=== PATIENT | female | born 1990 | race Caucasian/White ===

== ENCOUNTER 2017-03-17 12:59 | Emergency (ER) | payer OTHER ==
[~2017-03-17] VITALS: Ht 172.7 cm; Wt 73.6 kg
[2017-03-17 13:11] VITALS: TEMP 36.7; Ht 172.7 cm; Wt 73.6 kg
[2017-03-17] MEDS ORDERED: XYLOCAINE 1%/SOD BICARB 20 ML VIAL INFIL ONE (14:00)
[2017-03-17] MEDS ORDERED: BUPIVACAINE 0.5 % 5 MG/1 ML MPF 30ML VIAL INFIL ONE (14:00)
[2017-03-17] MEDS ORDERED: DIPHTHERIA/TETANUS/PERTUSSIS 0.5 ML SYR/VIAL IM. ONE (14:00)
--- NOTE | 2017-03-17 14:11 | EMERGENCY ROOM VISIT NOTE ---
ED Visit Note First contact with patient: 13:37 CHIEF COMPLAINT: Finger laceration HISTORY OF PRESENT ILLNESS: This 26-year-old female patient presents to the emergency department approximately 2 hours after cutting the anterior aspect of fingers 2-4. 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 The patient states she accidentally sliced 3 of her fingers. The patient immediately went to [facility], who cleaned and bandaged the wounds. The patient states they did applied Gelfoam to the index finger. The bleeding has stopped. Denies weakness or numbness of the finger. The patient has full range of motion of the fingers. The patient rates the pain as minimal and 2/10 at rest, but increases on palpation. The patient denies any other injuries. The patient's tetanus shot is not up to date. REVIEW OF SYSTEMS: A 6 system review of systems was completed with positives and pertinent negatives listed in the HPI. 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 She denies drug, alcohol, tobacco use. PHYSICAL EXAM: Vital Signs: Reviewed Nurse's notes, vital signs stable. GENERAL : This is a 26-year-old female, in no acute distress, well developed, well nourished. SKIN: There is Gelfoam in place over and avulsed fingertip on the right fourth finger. Digits 2 and 3 do show partial avulsions on the anterior aspect of the fingertips. These do lay together nicely and are not gaping. All bleeding is controlled. The edges gape apart with traction. There is no foreign material in the wounds and they look clean. No deep structures such as tendons, bones, or significant blood vessels are seen in the base of the wound. Extension and flexion of the finger is full and strong. Full range of motion of the wrist and other fingers. Capillary refill less than 2 seconds. Normal sensation to light and sharp touch. EMERGENCY DEPARTMENT COURSE: I examined the patient. Verbal consent was obtained to perform the procedure. Using sterile technique the wound was cleansed with Betadine. 4 ml of 1% buffered lidocaine with 0.5% bupivacaine was used to perform a digital block of digits 2 and 3 to anesthetize the patient. The area was sterilely draped. Once the patient was anesthetized, the wound was copiously irrigated under pressure with sterile saline. The wounds were explored and there were no deep structures injured. The laceration on the 2nd digit was repaired using 6 simple interrupted 5-0 nylon sutures. The laceration on the 3rd digit was repaired using 8 simple interrupted 5-0 nylon sutures. The patient tolerated the procedure well. Hemostasis was achieved. The area was cleaned with sterile saline and dressed with bacitracin ointment and bandage. The patient was given a tetanus booster. The patient was discharged home in good condition. DIFFERENTIAL DIAGNOSIS: avulsion, fracture, laceration, infection, and others. DIAGNOSIS: partial fingertip avulsion DISCHARGE INSTRUCTIONS & TREATMENT: You have received 14 total sutures on your right index and right middle fingers. These sutures are NOT dissolvable and WILL need to be removed by a health care provider in 10-14 days. You can return to the Emergency Department or contact your Primary Care Provider to have the sutures removed. Proper wound care is essential for adequate wound healing and infection prevention. You can shower and clean the wound with soap and water. Do not scour over the wound, pat dry with a towel. Do not submerse the wound (i.e. bathe or dish wash) until the sutures have been removed. You can use an antibiotic ointment with a dressing over the wound for the next 3-4 days. After this time you may leave the wound dry and open to the air. If crust develops over the wound you can use a Q-tip to apply a 1:1 peroxide:water solution to clean the wound. Look for signs of infection of the wound including: increased pain, swelling, foul discharge, streaking, or increased temperature. If any of these are noticed you should return to the Emergency Department for further assessment and treatment. As with any laceration you may have received nerve damage to the surrounding tissues. This damage may or may not be permanent. You should keep the area covered with sunscreen for the first 6 months to 1 year when at risk for exposure to help minimize scarring. You can also use scar reducing creams or Vitamin E oil to help minimize scarring. For pain control, you can use the following [id number] medicines (if >12 yo): - Regular strength (325mg/tab) Tylenol (acetaminophen) 2 tabs every 4-6 hours as needed. Do not exceed 9 tablets in a 24 hour period. Avoid taking more than 3 grams (3000 mg) of Tylenol per day. This includes any other sources of acetaminophen you may take on a regular basis. - Regular strength (200 mg/tab) Advil (ibuprofen) 1-2 tabs every 4-6 hours as needed. Do not exceed a dose of 2400 mg per day. Return to the emergency department if your symptoms worsen despite treatment course outlined above. Current/Historical Medications No Active Prescriptions or Reported Meds Allergies Coded Allergies: No Known Allergies (Unverified , 03/17/17) Vital Signs Date Time Temp Pulse Resp B/P (MAP) Pulse Ox O2 Delivery O2 Flow Rate FiO2 03/17/17 15:34 69 18 119/72 100 03/17/17 13:11 36.7 75 20 126/81 100 Room Air Medications Administered Medications (Trade) Dose Ordered Sig/Telma Route Start Time Stop Time Status Last Admin Dose Admin Diphtheria/ Pertussis/Tetanus Vacc (Adacel Inj) 0.5 ml ONCE ONCE IM. 03/17/17 14:00 03/17/17 14:01 DC 03/17/17 14:00 0.5 ML Departure Information Impression Primary Impression: Finger avulsion Dispostion Home / Self-Care Condition GOOD Prescriptions No Active Prescriptions or Reported Meds Referrals [facility] (PCP) Patient Instructions ED Avulsion Dermal, ED Laceration Ext Sutr Stap Tape, Gertrude Additional Instructions You have received 14 total sutures on your right index and right middle fingers. These sutures are NOT dissolvable and WILL need to be removed by a health care provider in 10-14 days. You can return to the Emergency Department or contact your Primary Care Provider to have the sutures removed. Proper wound care is essential for adequate wound healing and infection prevention. You can shower and clean the wound with soap and water. Do not scour over the wound, pat dry with a towel. Do not submerse the wound (i.e. bathe or dish wash) until the sutures have been removed. You can use an antibiotic ointment with a dressing over the wound for the next 3-4 days. After this time you may leave the wound dry and open to the air. If crust develops over the wound you can use a Q-tip to apply a 1:1 peroxide:water solution to clean the wound. Look for signs of infection of the wound including: increased pain, swelling, foul discharge, streaking, or increased temperature. If any of these are noticed you should return to the Emergency Department for further assessment and treatment. As with any laceration you may have received nerve damage to the surrounding tissues. This damage may or may not be permanent. You should keep the area covered with sunscreen for the first 6 months to 1 year when at risk for exposure to help minimize scarring. You can also use scar reducing creams or Vitamin E oil to help minimize scarring. For pain control, you can use the following [id number] medicines (if >12 yo): - Regular strength (325mg/tab) Tylenol (acetaminophen) 2 tabs every 4-6 hours as needed. Do not exceed 9 tablets in a 24 hour period. Avoid taking more than 3 grams (3000 mg) of Tylenol per day. This includes any other sources of acetaminophen you may take on a regular basis. - Regular strength (200 mg/tab) Advil (ibuprofen) 1-2 tabs every 4-6 hours as needed. Do not exceed a dose of 2400 mg per day. Return to the emergency department if your symptoms worsen despite treatment course outlined above. School Instructions Return To School: 1 day Problem Qualifiers Primary Impression: Finger avulsion Encounter type: initial encounter Qualified Codes: S61.209A - Unspecified open wound of unspecified finger without damage to nail, initial encounter
[2017-03-17 15:34] VITALS: BP 119/72; PULSE 69; O2SAT 100
== END 2017-03-17 15:35 | disposition home or self-care (01) ==
LOC: C.EDB 13:00 → C.EDD 15:35
DX: S61.209A Unspecified open wound of unspecified finger without damage to nail, initial encounter (principal); W26.0XXA Contact with knife, initial encounter

== ENCOUNTER 2017-03-28 11:20 | Emergency (ER) | payer OTHER ==
[~2017-03-28] VITALS: Ht 172.7 cm; Wt 73.1 kg
[2017-03-28 11:29] VITALS: BP 113/79; PULSE 75; TEMP 37.1; O2SAT 100; Ht 172.7 cm; Wt 73.1 kg
[2017-03-28] MEDS ORDERED: MUPIROCIN 2% OINT 22 GM TUBE EXT STA (11:44)
--- NOTE | 2017-03-28 11:52 | EMERGENCY ROOM VISIT NOTE ---
ED Visit Note First contact with patient: 11:35 CHIEF COMPLAINT: Suture removal HPI: This patient returns to the ED today for removal of sutures in 2 of her fingers that were placed 1 days ago. There has been no swelling, redness, or significant drainage from the wound. She states there is a small area next to the nail of the 3rd digit which is draining some clear, sticky fluid, but otherwise is not concerning. The patient feels like the laceration is healing well. She denies headache, nausea, vomiting, fever, chills, or other concerning symptoms. REVIEW OF SYSTEMS: A complete 6 point review of systems was reviewed with the patient with pertinent positives and negatives as per history of present illness. All else were negative. PMH: The patient is healthy; there is no significant medical or surgical history. MEDS: None. 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 PHYSICAL EXAM: Vital Signs: Reviewed Nurse's notes. There is a sutured wound on the right 2nd and 3rd finger with no signs of infection. There is no erythema, swelling, or tenderness. There is minimal drainage from the wound on the 3rd finger, next to the nail. There is no tenderness on palpation. EMERGENCY DEPARTMENT COURSE: The sutures were removed without any difficulty and there was no separation of the wound edges. The wounds were bandaged with bactroban and a bandaid. The patient was discharged home in good condition and encouraged to use bactroban as directed. DIFFERENTIAL DIAGNOSIS: Healing laceration, suture removal, cellulitis, abscess , and others. DIAGNOSIS: Healing laceration and suture removal DISCHARGE INSTRUCTIONS AND TREATMENT: Proper wound care is essential for adequate wound healing and infection prevention. You can shower and clean the wound with soap and water. Do not scour over the wound, pat dry with a towel. Do not submerse the wound (i.e. bathe or dish wash) until the wound has fully healed. You can use an antibiotic ointment with a dressing over the wound for the next 3-4 days. After this time you may leave the wound dry and open to the air. You have been prescribed Bactroban (mupirocin) Ointment. This is an antibiotic ointment that will help to prevent the development of an infection at the site of your wound. After you have cleaned the wound with soap and water and dried the area thoroughly, you should apply a layer of the ointment to the site of the wound. You should apply a dressing over the site of the wounds to keep it clean from contamination. Return to the emergency department for worsening redness, swelling, puslike drainage, fever, chills, nausea, vomiting, or other associated symptoms. Resume activities as tolerated, however be mindful of the wounds on your fingers if completing an activity which may further injure the fingers. Current/Historical Medications No Active Prescriptions or Reported Meds Allergies Coded Allergies: No Known Allergies (Unverified , 03/17/17) Vital Signs Date Time Temp Pulse Resp B/P (MAP) Pulse Ox O2 Delivery O2 Flow Rate FiO2 03/28/17 11:29 37.1 75 16 113/79 100 Room Air Departure Information Impression Primary Impression: Encounter for removal of sutures Additional Impression: Laceration of finger Dispostion Home / Self-Care Condition GOOD Prescriptions No Active Prescriptions or Reported Meds Referrals No Doctor, Assigned (PCP) Patient Instructions ED Wound Check Sutr Remove No Infec, [facility] Additional Instructions Proper wound care is essential for adequate wound healing and infection prevention. You can shower and clean the wound with soap and water. Do not scour over the wound, pat dry with a towel. Do not submerse the wound (i.e. bathe or dish wash) until the wound has fully healed. You can use an antibiotic ointment with a dressing over the wound for the next 3-4 days. After this time you may leave the wound dry and open to the air. You have been prescribed Bactroban (mupirocin) Ointment. This is an antibiotic ointment that will help to prevent the development of an infection at the site of your wound. After you have cleaned the wound with soap and water and dried the area thoroughly, you should apply a layer of the ointment to the site of the wound. You should apply a dressing over the site of the wounds to keep it clean from contamination. Return to the emergency department for worsening redness, swelling, puslike drainage, fever, chills, nausea, vomiting, or other associated symptoms. Resume activities as tolerated, however be mindful of the wounds on your fingers if completing an activity which may further injure the fingers. Problem Qualifiers Additional Impression: Laceration of finger Encounter type: subsequent encounter Finger: unspecified finger Damage to nail status: without damage Foreign body presence: without foreign body Laterality: right Qualified Codes: S61.219D - Laceration without foreign body of unspecified finger without damage to nail, subsequent encounter
== END 2017-03-28 12:25 | disposition home or self-care (01) ==
LOC: C.EDB 11:23 → C.EDD 12:25
DX: Z48.02 Encounter for removal of sutures (principal); S61.219A Laceration without foreign body of unspecified finger without damage to nail, initial encounter; W26.0XXA Contact with knife, initial encounter